=== PATIENT | male | born 1965 | race Caucasian/White ===

== ENCOUNTER → 2024-07-10 12:00 | Outpatient (BNVA) | payer MEDICAID, SELFPAY | PROVIDERS: PCP Family Medicine; Visit Provider Family Medicine | DX: I10 Essential (primary) hypertension (principal); E11.9 Type 2 diabetes mellitus without complications; R35.1 Nocturia | CPT/HCPCS: 80053; 80061; 82043; 83036; 84153; 85025 ==

== ENCOUNTER → 2024-11-09 09:29 | Outpatient (BNVA) | payer MEDICAID, SELFPAY | PROVIDERS: PCP Family Medicine; Visit Provider Family Medicine | DX: R53.83 Other fatigue (principal) | CPT/HCPCS: 84403; 84443 ==

== ENCOUNTER → 2025-01-19 14:55 | Outpatient (BNVA) | payer MEDICAID, SELFPAY | PROVIDERS: PCP Family Medicine; Visit Provider Family Medicine | DX: E11.9 Type 2 diabetes mellitus without complications (principal) | CPT/HCPCS: 80053; 83036; 85025 ==

== ENCOUNTER 2025-01-28 13:56 | Outpatient (CLI) | payer MEDICAID, SELFPAY ==
--- NOTE | 2025-01-28 14:15 | CT_ITS ---
WS: [id number] CT HEAD NONCONTRAST HISTORY: syncope TECHNIQUE: Contiguous axial imaging performed through the brain. Bone and soft tissue windows. Sagittal and coronal reformats reviewed. All CT scans at [facility] use at least one of these dose optimization techniques: automated exposure control; mA and/or kV adjustment per patient size (includes targeted exams where dose is matched to clinical indication); or iterative reconstruction. DLP: 1031.21 mGy.cm COMPARISON: None available. No acute intracranial hemorrhage, midline shift or mass effect. Very minimal cerebral atrophy. There are a few areas of decreased attenuation. Small vessel disease. No mass effect. Ventricles: Normal size with no hydrocephalus. No inferior displacement of the cerebellar tonsils. Paranasal sinuses: As visualized are clear. Mastoid air cells: Well pneumatized. Calvarium and scalp: Skull is intact with no soft tissue edema or swelling. CT/CT head wo con* [id number] IMPRESSION: 1. No acute intracranial hemorrhage or edema. 2. Mild cerebral atrophy and mild small vessel changes.
== END 2025-01-28 13:57 | disposition home or self-care (01) ==
LOC: RAD 13:58
PROVIDERS: PCP Family Medicine; Visit Provider Family Medicine
DX: R55 Syncope and collapse (principal); I67.89 Other cerebrovascular disease
CPT/HCPCS: 70450

== ENCOUNTER 2025-01-29 15:06 | Outpatient (CLI) | payer MEDICAID, SELFPAY ==
--- NOTE | 2025-01-29 15:09 | USCV_ITS ---
Vin Bora Age: 59 Gender: M : 1965 Exam Date: 01/29/2025 15:28 Ordering Phys: Almaz Fletcher DO Technologist: [place] [facility] [place]: [place] Risk Factors: Previous Vascular Surgery: Right Brachial BP: / Left Brachial BP: / Right Left Velocity (cm/s) Spectral Plaque Velocity (cm/s) Spectral Plaque Syst/Diast Broadening Syst/Diast Broadening 72.40/ 16.70 Prox CCA 64.00 / 18.00 62.10/ 18.00 Mid CCA 75.20 / 22.20 49.10/ 14.10 Distal CCA 55.60 / 16.80 38.20/ 13.60 Prox ICA 47.70 / 17.20 60.00/ 17.10 Mid ICA 66.30 / 23.20 56.20/ 19.00 Distal ICA 54.90 / 20.40 88.00 ECA 83.30 0.80 ICA/CCA 0.90 Antegrade Vertebral Antegrade 49.40/ 10.00 cm/s 47.30/ 16.10 cm/s Tri Subclavian Tri 80.10 77.50 CONCLUSIONS Right ICA stenosis <50%. Moderate atheromatous plaque right carotid bulb/ICA. Left ICA stenosis <50%. Moderate atheromatous plaque left carotid bulb/ICA. Intimal thickening in the common carotid arteries and internal carotid arteries bilaterally. Normal antegrade Doppler flow noted in the right vertebral artery. Normal antegrade Doppler flow noted in the left vertebral artery. Tad Castañeda MD (Electronically Signed) Final Date: 29 January 2025 18:46 S
== END 2025-01-29 15:07 | disposition home or self-care (01) ==
LOC: RAD 15:07
PROVIDERS: PCP Family Medicine; Visit Provider Family Medicine
DX: R55 Syncope and collapse (principal); I65.23 Occlusion and stenosis of bilateral carotid arteries
CPT/HCPCS: 93880